=== PATIENT | female | born 1990 | race Two or more races ===

== ENCOUNTER 2025-07-08 18:13 | Emergency (ER) | payer MEDICAID, SELFPAY ==
[2025-07-08 18:15] VITALS: BMI 51.1
[2025-07-08 18:43] VITALS: BP 174/94; PULSE 86; RESP 20; TEMP 36.6; O2SAT 96
--- NOTE | 2025-07-08 18:49 | XR_ITS ---
Examination: Knee, left, 3 views Technique: Knee AP, lateral, oblique 3 views Date and time of exam: July 08, 2025, 1857 hours INDICATIONS: Onset knee pain beginning 2 days ago. FINDINGS: Mild to moderate tricompartment osteoarthritis Large knee effusion, seen with internal derangement of the knee No fracture IMPRESSION: Large knee effusion
--- NOTE | 2025-07-08 18:49 | XR_ITS ---
Examination: Duplex scan of the lower extremity, unilateral left complete Date and time of exam: July 08, 2025, 10:00 p.m. INDICATIONS: Left leg pain today Technique: Duplex scan of the extremity veins using B-mode/grayscale imaging and Doppler spectral analysis and color flow Attention is directed to internal echogenicity, compression and augmentation involving these veins, color flow assessment, spectral analysis Findings: Major deep venous structures in the extremity demonstrate normal course and caliber. There is no evidence of deep vein thrombosis. Normal color flow and spectral analysis Impression: Negative for DVT..
[2025-07-08] MEDS: HYDROcodone/APAP 5/325 TABLET 1 TAB PO (18:53)
--- NOTE | 2025-07-08 19:13 | PD.EDEXREM ---
ED Extremity Problem RME/HPI General Chief complaint: Extremity Injury, Lower Stated complaint: LLE PAIN AND SWELLING TODAY Time Seen by Provider: 07/08/25 18:47 Arrival date/time: 07/08/25 18:13 34F with no significant PMH presents to ED with 1 day of LLE pain that started around knee area. Patient denies fall/trauma and back pain. No history of surgery there. Limitations: no limitations Related Data Home Medications ?Medication ?Instructions ?Recorded ?Confirmed metformin 1,000 mg tablet 1,000 mg PO BID 06/01/23 06/01/23 Previous Rx's ?Medication ?Instructions ?Recorded arm brace (Wrist Brace) #1 ea 02/03/24 ibuprofen 600 mg tablet 600 mg PO TID PRN pain #30 tabs 02/03/24 Allergies Allergy/AdvReac Type Severity Reaction Status Date / Time No Known Allergies Allergy Verified 07/08/25 18:14 Review of Systems Review of Systems Systems Reviewed: All systems reviewed, normal except as documented Musculoskeletal Musculoskeletal: Reports as per HPI, Reports arthralgias and Reports joint swelling Past Medical History Past Medical History NEUROLOGIC: Negative Neurological Disorders or Seizures CARDIAC: Negative Cardiac Disorders, Congestive Heart Failure or Hypertension RESPIRATORY: Negative Chronic Obstructive Pulmonary Disease (COPD) GASTROINTESTINAL: Negative Gastrointestinal Disorders, Hepatitis or Colorectal Cancer GENITOURINARY: Negative Genitourinary Disorders, Renal Disease, Kidney Stones or Prostate Cancer REPRODUCTIVE: Positive Previous Pregnancies; Negative Breast Cancer MUSCULOSKELETAL: Negative Musculoskeletal Disorders, Bone Cancer or Carpal Tunnel Syndrome ENDOCRINE: Negative Endocrine Disorders, Diabetes Mellitus Type 1, Diabetes Mellitus Type 2, Hypoglycemia, Hyperthyroidism, Hypothyroidism, Parathyroid Disease, Pituitary Disease, Systemic Lupus Erythematosus, Syndrome of Inappropriate Antidiuretic Hormone (SIADH) or Graves' Disease HEMATOLOGIC: Negative Blood Disorders or Anemia PSYCHO/SOCIAL: Negative Depression or Anxiety OTHER HISTORY: Positive Hospitalization; Negative Autoimmune Disease, Shingles, Blood Transfusions, Blood Transfusion Reaction, Anesthesia Reactions, Organ Transplant, Chemotherapy, Radiation Therapy, Hyperbaric Therapy, MRSA, VRSA, Vancomycin-Resistant Enterococci, Human Immunodeficiency Virus (HIV), Chicken Pox, Measles, Mumps, Rubella (Sami Measles), Pertussis, Clostridium Difficile, Cancer, Breast Cancer, Cervical Cancer, Colorectal Cancer, Lung Cancer, Ovarian Cancer or Prostate Cancer Family History FAMILY HISTORY: Negative Family Psychiatric Problems, Family Respiratory Disorders, Family Cardiac Disorders, Family Gastrointestinal Problems, Family Cancer, Family Surgery or Family Anesthesia Reaction Surgical History SURGICAL: Negative Cardiac Surgery, Endocrine Surgery, Ear Surgery, Abdominal Surgery, Nephrectomy, Transurethral Resection, Joint Replacement, Amputation, Open Reduction Internal Fixation, Arthroscopy, Neurologic Surgery, Brain Shunt, Mastectomy, Lumpectomy, Hysterectomy, Tubal Ligation, Section or Organ Transplant Social History SMOKING STATUS: Never smoker SECOND HAND EXPOSURE: No ED Exam General Limitations: Present no limitations General appearance: Present alert and in no apparent distress Head Head exam: Present atraumatic Neck Neck exam: Present normal inspection, full ROM and trachea midline Chest Chest inspection: Present normal inspection and symmetric chest wall rise Expanded Lower Extremity Exam Knee exam: Present swelling (L) Neurological Exam Neurological exam: Present alert and oriented X3 Psychiatric Psychiatric exam: Present normal affect and normal mood Skin Skin exam: Present warm, dry, intact and normal color Course Quality Measures none Orders Category Date Time Status Crutches .NOW Care 07/08/25 22:48 Active nichelle wrap [Splint / Immobilizer] STAT Care 07/08/25 22:48 Active US venous doppler LE LT Stat Exams 07/08/25 18:49 Completed XR knee LT 3V Stat Exams 07/08/25 18:49 Completed HYDROcodone*/APAP 5/325 [[place] 5/325] Med 07/08/25 18:49 Discontinued 1 tab PO X1 ONE Ketorolac Inj [Toradol Inj] Med 07/08/25 22:48 Discontinued 60 mg IM X1 ONE Vital Signs Vital signs: Vital Signs Temperature 97.9 F 07/08/25 18:43 Pulse Rate 86 07/08/25 18:43 Respiratory Rate 20 07/08/25 18:43 Blood Pressure 174/94 H 07/08/25 18:43 Pulse Oximetry (%) 96 07/08/25 18:43 Oxygen Delivery Method Room Air 07/08/25 18:43 O2 at 96% on RA and WNLs Extremity Problem MDM Narrative MDM Narrative:: 34F with no significant PMH presents to ED with 1 day of LLE pain that started around knee area. Patient denies fall/trauma and back pain. No history of surgery there. Physical exam reveals limited ROM of L knee. There is swelling, but no redness. Patient is afebrile, calm, and alert. XR tri-compartment OA. US no DVT. Given NICHELLE, crutches, meds, and mitochondrial disorders counselor. Patient data External records reviewed:: [facility] previous records Clinical information provided by:: patient Social determinants that could affect healthcare access:: none Patient has the following chronic illnesses:: none How is presenting disease/condition affected by chronic disease/condition?: no chronic disease Evaluation data The following diagnostics were reviewed and interpreted by me:: radiology exam(s) Lab and/or radiology exams considered but not ordered:: ordered Interpretation Summary: above Medications / Prescriptions Medications or Prescriptions considered but not ordered:: ordered Medication administrations:: Medication Administration History Discontinued Medications Hydrocodone Bitart/Acetaminophen (Hydrocodone/Apap 5/325 Tablet) 1 tab PO X1 ONE Stop: 07/08/25 18:50 Last Admin: 07/08/25 18:53 Dose: 1 tab Documented By: OA Ketorolac Tromethamine (Ketorolac Inj 60 Mg/2 Ml Vial) 60 mg IM X1 ONE Stop: 07/08/25 22:49 Last Admin: 07/08/25 23:01 Dose: 60 mg Documented By: SF above Consultations Consultation(s) initiated? (list below): No Diagnosis Extremity Problem Differential Diagnosis: herpes zoster, gout, cellulitis, superficial thrombophlebitis, deep venous thrombosis of upper extremity, lower extremity edema, deep vein thrombosis of lower extremity and other (knee derangement, Richard's cyst, septic arthritis) Most likely diagnosis given after review of the tests above:: knee derangement Admission Indicated Admission indicated?: not indicated Admission Request Was there a request for admission?: No Disposition Plan Disposition Plan: Discharge Discharge Attestation Discharge Attestation: The patient and all family members were given an opportunity to ask questions and understood the discharge instructions. Discharge instructions specifically effects, indications for sooner follow up or return to the emergency department, and the expected course of current diagnosis. Patient condition: Stable Discharge Plan Plan Patient Disposition: HOME (Self Care) Discharge Disposition comment: Stable Prescriptions/Referrals Prescriptions/Med Rec: No Action ibuprofen 600 mg tablet 600 mg PO TID PRN (Reason: pain) Qty: 30 0RF (DME) Wrist Brace Misc See Rx Instructions .Route Qty: 1 0RF Rx Instructions: As directed metformin 1,000 mg Tablet 1,000 mg PO BID Referrals: Cesilia León FNP [Primary Care Provider, Emergency Medicine] - In 1 week Problem List Clinical Impression: Acute internal derangement of knee Patient/Caregiver Discharge Instructions Education Materials: How Your Knee Works, ED Knee Effusion Additional Instructions: Please follow-up with PCP within 24-48 hours and return immediately if symptoms worsen. If problem persists, recommend outpatient PT and/or MRI follow-up. In the meantime, rest, use ice/heat, and/or compression. Return if worsening pain and/or fevers. Print Language: [place] Stand Alone Forms: Patient Portal Info Letter PA/DEVELOPING MACHINE OPERATOR Supervising Physician PA/DEVELOPING MACHINE OPERATOR Supervising Physician: Dr. Gale
[2025-07-08] MEDS: KETOROLAC INJ 60 MG/2 ML VIAL IM (23:01)
== END 2025-07-08 23:26 | disposition home or self-care (01) ==
PROVIDERS: Emergency Provider Family Medicine; PCP Nurse Practitioner Family
DX: M23.92 Unspecified internal derangement of left knee (principal)
CPT/HCPCS: 73562; 93971; 96372; 99283; J1885; A9270